=== PATIENT | male | born 1945 | race Hispanic/Latino ===

== ENCOUNTER 2021-01-16 11:33 | Emergency (ER) | payer MEDICARE, OTHER ==
[~2021-01-16] VITALS: Ht 165.1 cm; Wt 57.6 kg
[2021-01-16 11:47] VITALS: BP 125/67
[2021-01-16 13:01] LABS: APPEARANCE,URINE Clear (CLEAR); BILIRUBIN,URINE Negative (NEGATIVE); COLOR,URINE Yellow (YELLOW); GLUCOSE, URINE (UA) Negative (NEGATIVE); KETONES,URINE Negative (NEGATIVE); LEUKOCYTE ESTERASE ,URINE Negative (NEGATIVE); NITRATE,URINE Negative (NEGATIVE); OCCULT BLOOD,URINE Trace (NEGATIVE); PROTEIN,URINE 300 mg/dL (NEGATIVE)
[2021-01-16 13:25] LABS: BACTERIA,URINE Few /HPF (None Seen); RBC,URINE 0-1 /HPF (0-1); SQUAMOUS EPITHELIAL CELL,UR 0-2 /HPF (0-2); WBC,URINE 0-1 /HPF (0-1)
[2021-01-16] MEDS ORDERED: LIDOCAINE HCL-MPF 1% 2ML VIAL ONE (13:43)
[2021-01-16 13:51] VITALS: BP 138/60
[2021-01-16] MEDS ORDERED: CEFTRIAXONE 1G VIAL IM ONE (14:00)
[2021-01-16] MEDS ORDERED: CEPH500B PO (14:22)
== END 2021-01-16 15:44 | disposition home or self-care (01) ==
LOC: EDH 11:33
DX: N39.0 Urinary tract infection, site not specified (principal)
CPT/HCPCS: 81001; 87088; 96372; 99283; J0696; J3490